=== PATIENT | female | born 1950 | race Caucasian/White ===

== ENCOUNTER → 2018-07-19 12:49 | Outpatient (CLI) | payer MEDICARE, OTHER, SELFPAY ==
--- NOTE | 2018-07-19 | DI.MRI.S_ITS ---
PROCEDURE: MR KNEE RT WO CON INDICATIONS: PAIN IN RIGHT KNEE TECHNIQUE: Noncontrast sagittal PD fast spin echo and T2 fast spin echo with fat saturation, sagittal 3-D FLASH with fat saturation; coronal T1 spin echo and PD fast spin echo with fat saturation, and axial PD fast spin echo with fat saturation through the knee. COMPARISON: [facility], MR, KNEE WITHOUT CONTRAST, 10/10/2017, 13:20. [facility], CR, XR KNEE ARTHRITIC SERIES LT, 11/08/2017, 13:48. [facility] [place], CR, XR KNEE ARTHRITIC SERIES BI, 06/05/2018, 13:55. FINDINGS: Image quality: Excellent. Menisci: There medial meniscal extrusion and a horizontal tear involving the body of the medial meniscus. Discoid lateral meniscus. No meniscal tear. The meniscal root ligaments appear intact. Cruciate ligaments: The anterior and posterior cruciate ligaments appear intact. Medial structures: The medial collateral ligament appears intact. The posterior oblique ligament, semimembranosus tendon insertions, oblique popliteal ligament, and meniscocapsular junction appear intact. Visualized portions of the pes anserinus tendons appear normal. No abnormal bursal fluid. Lateral structures: The lateral collateral ligament, long and short heads of the biceps femoris tendon appear intact. The popliteus tendon appears normal; the popliteofibular ligament appears intact. The posterosuperior and anteroinferior popliteomeniscal fascicles appear intact. The arcuate and fabellofibular ligaments appear intact, on either side of the lateral inferior geniculate artery. Iliotibial band appears normal. Anterior structures: The quadriceps and patellar tendons appear intact. Patellar alignment is normal. No femoral trochlear dysplasia or ventral trochlear prominence. No edema in the infrapatellar fat pad. Bones and cartilage: No bone fractures. Mild marrow edema in the medial femoral condyle and the acute plateau, most likely reactive. There is cartilage thinning involving the medial femorotibial compartment. Joint space: There is small to moderate knee joint fluid. Small Titus's cyst. Normal appearing synovial plicae are incidentally noted. IMPRESSION: 1. Medium this distribution and horizontal tear of the body of the medial meniscus. 2. Discoid atelectasis. 3. Severe cartilage thinning involving the medial femorotibial compartment. 4. Small to moderate knee joint effusion. 5. Small Titus's cyst. Dictated by: Nathaniel Ochoa M.D. on 07/19/2018 at 16:14 Approved by: Nathaniel Ochoa M.D. on 07/19/2018 at 16:25
== END ==
PROVIDERS: Visit Provider Orthopaedic Surgery
DX: S83.241A Other tear of medial meniscus, current injury, right knee, initial encounter (principal); M25.561 Pain in right knee; M25.461 Effusion, right knee; M71.21 Synovial cyst of popliteal space [Baker], right knee
CPT/HCPCS: 73721